=== PATIENT | male | born 1965 | race Caucasian/White ===

== ENCOUNTER 2020-04-09 12:10 | Emergency (ER) | payer BC, OTHER ==
[~2020-04-09] VITALS: Ht 177.8 cm; Wt 79.5 kg
[~2020-04-09 12:10] MED LIST: ALLO300T11 PO; AMOX-580 PO; CHLO25CA10 PO; COL0.6T PO; HYDR-4353 PO; HYDR50CA PO; INDO50CA96 PO; NAPR-1144 PO
[2020-04-09] MEDS ORDERED: normal saline 1000ML IV soln IVB ONE (12:35)
[2020-04-09] MEDS ORDERED: ondansetron/PF 4mg/2ml inj IV ONE (12:35)
[2020-04-09] MEDS ORDERED: thiamine 100mg/ml 2ml inj. IV ONE (12:35)
[2020-04-09] MEDS ORDERED: folic acid 1mg/0.2ml inj IV ONE (12:35)
[2020-04-09] MEDS ORDERED: LIDOcaine 1.5% w/epinephrine 1:200,000 5ml ampul IJ ONE (12:40)
[2020-04-09] MEDS ORDERED: TETanus/Pertussis (Acell)/Diphther VAC/PF (Tdap-Adult) 0.5ml syringe IMVAC ONE (12:40)
[2020-04-09] MEDS ORDERED: iohexol 350MG/ML 100ml bottle IV ONE (12:56)
--- NOTE | 2020-04-09 13:03 | NUR ---
Pt to CT with KAMRON Gee accompanying Patient.
[2020-04-09] MEDS ORDERED: LIDOcaine 1% w/epiNEPHrine 1:200,000 30ml vial IJ ONE (13:45)
[2020-04-09 14:19] LABS: BASOPHILS # (AUTO) 0.1 X10'3 (0-0.2); BASOPHILS % (AUTO) 1.3 % (0-1); EOSINOPHILS # (AUTO) 0.2 X10'3 (0-0.9); EOSINOPHILS % (AUTO) 3.3 % (0-6); HEMATOCRIT 44.4 % (42.0-52.0); HEMOGLOBIN 15.1 g/dl (14.0-17.9); LYMPHOCYTES # (AUTO) 1.4 X10'3 (1.1-4.8); LYMPHOCYTES % (AUTO) 29.6 % (21-51); MEAN CORPUSCULAR HEMOGLOBIN 31.5 PG (27.0-31.0); MEAN CORPUSCULAR HGB CONC 33.9 g/dL (33.0-36.5); MONOCYTES # (AUTO) 0.6 X10'3 (0-0.9); NEUTROPHILS # (AUTO) 2.6 X10'3 (1.8-7.7); NEUTROPHILS % (AUTO) 53.8 % (42-75); PLATELET COUNT 220 X10'3 (140-440); RED BLOOD COUNT 4.78 X10'6 (4.70-6.10); RED CELL DISTRIBUTION WIDTH 12.7 % (11.5-14.5); WHITE BLOOD COUNT 4.7 X10'3 (4.5-11.0)
[2020-04-09 14:32] LABS: ALANINE AMINOTRANSFERASE 41 U/L (12-78); ALBUMIN 3.7 G/DL (3.4-5.0); ALBUMIN/GLOBULIN RATIO 0.9 (1.1-1.5); ALKALINE PHOSPHATASE 73 IU/L (46-116); ANION GAP 8 (8-16); ASPARTATE AMINO TRANSFERASE 53 U/L (10-37); BILIRUBIN,TOTAL 0.3 MG/DL (0.1-1.0); BLOOD UREA NITROGEN 12 MG/DL (7-18); CALCIUM 8.3 MG/DL (8.5-10.1); CHLORIDE 108 MMOL/L (99-107); CREATININE 0.86 MG/DL (0.60-1.10); GLUCOSE 89 MG/DL (70-104); POTASSIUM 4.3 MMOL/L (3.5-5.1); SODIUM 144 MMOL/L (135-145); TOTAL CARBON DIOXIDE 27.8 MMOL/L (24-32); TOTAL PROTEIN 7.7 G/DL (6.4-8.2); eGFR > 90 ML/MIN
[2020-04-09 14:43] LABS: ETHANOL 0.364 GM/DL (0.0-0.010)
[2020-04-09 15:31] LABS: CLARITY,URINE CLEAR (Clear); COLOR,URINE YELLOW (Yellow); GLUCOSE, URINE NEGATIVE (Neg); KETONES,URINE NEGATIVE (Neg); LEUKOCYTE ESTERASE ,URINE NEGATIVE (Neg); NITRITES, URINE NEGATIVE (Neg); OCCULT BLOOD,URINE TRACE-INTACT (Neg); PH,URINE 6.5 (4.8-8.0); PROTEIN,URINE NEGATIVE (Neg); UROBILINOGEN,URINE 0.2 E.U/dL (0.2-1.0)
[2020-04-09 15:32] LABS: URINE AMPHETAMINE SCREEN NEGATIVE (Neg); URINE BARBITUATE SCREEN NEGATIVE (Neg); URINE BENZODIAZEPINES SCREEN NEGATIVE (Neg); URINE CANNABINOID SCREEN NEGATIVE (Neg); URINE COCAINE SCREEN NEGATIVE (Neg); URINE METHADONE SCREEN NEGATIVE (Neg); URINE OPIATE SCREEN NEGATIVE (Neg); URINE PHENCYCLIDINE SCREEN NEGATIVE (Neg)
[2020-04-09 15:38] LABS: UA COLLECTION TYPE CLN CATCH MIDSTREAM
--- NOTE | 2020-04-09 15:40 | NUR ---
FAXED PACKET [facility]
[2020-04-09 15:48] LABS: BACTERIA,URINE NONE SEEN /HPF (Neg); RBC,URINE 0-2 /HPF (0-2); SQUAMOUS EPITHELIAL CELL,UR NONE SEEN /LPF (FEW); WBC,URINE 0-4 /HPF (0-4)
--- NOTE | 2020-04-09 15:51 | NUR ---
REPORT RECEIVED, CARE ASSUMED. PT BROUGHT OVER FROM ER14 OF23. PT HAS BANDAGES ON BOTH SIDES OF HIS NECK FROM SELF HARM; CUTTING HIMSELF. PT HAS A PIV RUNNING 2ND LITER OF NS. PT IS COOPERATIVE. URIN SENT TO LAB, PT GIVEN LUNCH TRAY AND IS CURRENTLY SLEEPING IN NO NOTED DISCRESS
--- NOTE | 2020-04-09 17:04 | NUR ---
PT IS AWAKE, DISCUSSED THAT BROUGHT HIM IN TO THE ER WITH HIS NECK INJURIES. PT STATES "JUST LIFE, IT'S TOO HARD". PT IS VERY EVASIVE, STATING THAT HE HAS NOT BEEN HAPPY WITH HIS JOB AND HIS NEW BOSS, WOMEN, AND JUST LIFE IN GENERAL. PT STATES THAT HE WISHED HE HAD AND THE ONLY THING THAT SAVED HIM WAS A "CALL FROM MY BOSS AT JUST THE RIGHT TIME." PT ADMITTS TO NEEDING HELP AND IS WILLING TO ACCEPT IT AT THIS TIME. PT IS REQUESTIONS MEDICATION FOR NECK PAIN AND REQUESTED HIS CAN OF CHEW. PT WAS TOLD THAT THIS WAS A NON-TOBACCO HOSPITAL AND THAT THE PROVIDER WOULD BE ASKED FOR PAIN MEDICATION AND A NICOTINE PATCH FOR HIM
[2020-04-09] MEDS ORDERED: nicotine 21mg patch - 24 hr TD ONE (17:35)
[2020-04-09] MEDS ORDERED: acetaminophen 325mg tablet PO ONE (17:35)
--- NOTE | 2020-04-09 17:50 | NUR ---
PT ON THE PHONE WITH HIS DAUGHTER JLUIS. PT GIVEN TYLENOL AND APPLIED A 21 NICOTINE PATCH TO HIS RT SHOULDER
--- NOTE | 2020-04-09 17:57 | NUR ---
PT HAS GIVEN STAFF PERMISSION TO SHARE ANY INFORMATION WITH HIS DAUGHTER JLUIS, REGARDING HIS CARE AND STATUS DURING HIS HOSPITAL STAY
--- NOTE | 2020-04-09 18:19 | NUR ---
PT'S DAUGHTER, JLUIS PRIEST, CALLED WITH CONCERNS REGARDING HER FATHER. SHE WAS NOTIFIED THAT HER FATHER HAD GIVEN THE STAFF PERMISSION TO SPEAK WITH HER REGARDING HIS CARE AND STATUS WHILE IN THE HOSPITAL. MS PRIEST ASKED HOW LONG HE WOULD HE BE HELD AND THE DIFFERENCE BETWEEN AND 179 vs 515 WAS EXPLAINED. MS PRIEST EXPRESSED CONCERN THAT HER FATHER WOULD "BULLSHIT" HIS WAY THROUGH THE PROCESS AND STATES THAT HE MADE STATMENTS TO HER REGARDING "FINISHING WHAT I STARTED WHEN I GETS OUT". CLEMENTINE FROM [facility] NOTIFIED OF THE CONVERSATION WITH MS. ZAYDA PRIEST'S CONTACT PHONE # [phone]
--- NOTE | 2020-04-09 19:27 | NUR ---
ASSUMING CARE OF PT FROM DAY SHIFT RN, HUBERT. PTS DAUGHTER, MCKENZIE, CALLING AND TALKING WITH PT NOW. PT JUST FINISHED EATING DINNER, ATE APROX 50% OF HIS MEAL. PT STATES A HEADACHE AND IS WILLING TO TAKE A TYLENOL IF AVAILABLE. I WILL REQUEST FROM PROVIDER. OTHERWISE PT WITH NO COMPLAINTS.
--- NOTE | 2020-04-09 19:29 | NUR ---
PT RECEIVED A TYLENOL TAB 650 MG 1.5 HR AGO. UPDATED THAT NO OTHER PRN PAIN MEDS AVAIL AT THIS TIME. PT REPORTS HE IS OK AT THIS TIME.
[2020-04-09] MEDS ORDERED: Melatonin 3mg tablet PO SCH (21:00)
--- NOTE | 2020-04-09 21:31 | NUR ---
PT REMAINS AWAKE, GIVEN REFILL OF PITCHER OF ICE WATER. PT REQUESTS SOMETHIGN TO HELP HIM SLEEP. STATES HE HAS NOT TAKEN ANYTHING IN THE PAST FOR THIS.
--- NOTE | 2020-04-09 21:48 | NUR ---
VERBAL RECEIVED FROM DR RAMOS FOR MELATONIN 3 MG TAB X1 NOW.
[2020-04-09] MEDS ORDERED: NO HOME MEDS (22:22)
--- NOTE | 2020-04-09 22:39 | NUR ---
PT ASKED EARLIER ABOUT HIS FEELING ABOUT WANTING TO END HIS LIFE AND HIS CURRENT STRESSORS. HE STATES TODAY HE CALLED HIS FORMS DESIGNER TO INQUIRE ABOUT GETTING HELP TO GO TO REHAB FOR HIS ETOH. WHEN HE SPOKE WITH IS UNION REP LATER, HE TOLD HIM HE HAD JUST CUT HIS THROAT. THE INDIVIDUAL HUNG UP AND "HE MUST HAVE CALLED 911" SOON AFTER PT REPORTS AN AMBULANCE WAS AT HIS HOME. PT STATES HE CALLED HIS EXWIFE ONCE ADMITTED HERE AND THEN HIS DAUGHTER, JLUIS, CALLED HIM. STATES HE IS FEELING LESS DEPRESSED BECAUSE HE SPOKE WITH HIS DAUGHTER AND THEY HAVE NOT SPOKEN IN OVER A YEAR. SHE CALLED A WHILE AGO FOR A 2ND TIME.
--- NOTE | 2020-04-10 00:40 | NUR ---
pt remains unable to sleep. was given melatonin 3 mg 2 hr ago. nicotine patch also just came off and pt request new one.
--- NOTE | 2020-04-10 00:43 | NUR ---
verbal received from dr. grajeda for reorder of nicotine patch now and benedryl 50 mg po x 1 now for sleep.
[2020-04-10] MEDS ORDERED: diphenhydrAMINE 25mg capsule PO ONE (00:45)
[2020-04-10] MEDS ORDERED: nicotine 21mg patch - 24 hr TD ONE (00:45)
--- NOTE | 2020-04-10 00:56 | NUR ---
pt given benedryl and new nicotine patch.
[2020-04-10 06:09] VITALS: BP 150/92
--- NOTE | 2020-04-10 06:32 | NUR ---
PT IS SLEEPING. NO CONCERNS AT THIS TIME
--- NOTE | 2020-04-10 07:51 | NUR ---
wound to neck was checked by md. dressing intact
--- NOTE | 2020-04-10 08:52 | NUR ---
pt states he is feeling better today. denies any neck pain.
--- NOTE | 2020-04-10 09:46 | NUR ---
pt is speaking with [facility]
--- NOTE | 2020-04-10 10:21 | NUR ---
breaking primary RN, pt was calm;y laying in bed, got up to bathroom and then called his daughter, no needs at this time
== END 2020-04-10 15:06 ==
LOC: ER 12:11
DX: S11.81XA Laceration without foreign body of other specified part of neck, initial encounter (principal); S01.81XA Laceration without foreign body of other part of head, initial encounter; F32.9 Major depressive disorder, single episode, unspecified; F10.129 Alcohol abuse with intoxication, unspecified; I10 Essential (primary) hypertension; M10.9 Gout, unspecified; Z90.49 Acquired absence of other specified parts of digestive tract; Z98.890 Other specified postprocedural states; Z79.899 Other long term (current) drug therapy; X78.8XXA Intentional self-harm by other sharp object, initial encounter; Y92.89 Other specified places as the place of occurrence of the external cause; Y99.8 Other external cause status; Y90.0 Blood alcohol level of less than 20 mg/100 ml
CPT/HCPCS: 12013; 36415; 70496; 70498; 80053; 80305; 80320; 81001; 84443; 85025; 90471; 90715; 96361; 96374; 96375; 99291; J2405; J3411; J3490; J7030; Q0163; Q9967; 99285

== ENCOUNTER 2020-04-10 12:44 | Inpatient (IN) | payer BC, OTHER ==
[~2020-04-10] VITALS: Ht 177.8 cm; Wt 75.5 kg
[~2020-04-10 12:44] MED LIST changes: -ALLO300T11 PO; -AMOX-580 PO; -CHLO25CA10 PO; -COL0.6T PO; -HYDR-4353 PO; -HYDR50CA PO; -INDO50CA96 PO; -NAPR-1144 PO; +NO HOME MEDS
[2020-04-10] MEDS ORDERED: acetaminophen 325mg tablet PO PRN (14:55)
[2020-04-10] MEDS ORDERED: magnesium hydroxide 30ml (MOM) UD suspension PO PRN (14:55)
[2020-04-10] MEDS ORDERED: loperamide 2mg capsule PO PRN (14:55)
[2020-04-10] MEDS ORDERED: mag hydrox/Alum hydrox/simeth 30ml oral suspension PO PRN (14:55)
[2020-04-10 15:30] VITALS: BP 160/96
[2020-04-10] MEDS: LORazepam 1 MG tablet PO PRN ×2 (15:37→21:57)
[2020-04-10] MEDS: acetaminophen 325mg tablet PO PRN (15:37)
[2020-04-10] MEDS: NICOTINE POLACRILEX 2 MG LOZENGE BC PRN ×2 (15:51→18:52)
--- NOTE | 2020-04-10 17:58 | NUR ---
Admission Note: Pt. admitted to the unit at approximately 1455 from ER Overflow. Safety check completed and belongings inventoried by Bibi Duke. Pt. was originally brought in the the ER by EMS from his residence at [address] Pt. reported increased depression X one month r/t a recent break up and chronic alcohol use. Pt. reports that he drinks a 6 pack of beer/day for the last 10 years. Pt. had used alcohol and then taken a razor blade and used it to cause self-inflicted neck wounds bilaterally and to the right side of his forehead. Pt's sales representative supervisor from work called 911. Pt. was cooperative with the admission process and currently denies any S/I. He scored as a high risk on the [place] Suicide Risk Assessment, however is able to contract for safety, Q 15min safety checks ordered by BRYANNA Alvarenga. Pt. does report anxiety and has experienced alcohol withdrawal in the past, endorsed to BRYANNA Alvarenga who ordered CIWA Q 6 hours. PRN Ativan and Tylenol administered for H/A with effectiveness. Pt. denies any home medications. Pictures obtained of pt's lacerations and chronic generalized psoriasis rash present on his body and placed in chart.
[2020-04-10 20:00] VITALS: BP 141/89
[2020-04-10] MEDS: traZODone 50mg tablet PO PRN (21:57)
[2020-04-10] MEDS: Melatonin 3mg tablet PO SCH (21:57)
--- NOTE | 2020-04-11 04:04 | NUR ---
Nursing Progress Note: Miguel Chaparro Legal hold:5150 Client on voluntary/involuntary status for GD. Report received from TAMELA Giordano with use of SBAR. Why are they here: Admission Note: Pt. admitted to the unit at approximately 1455 from ER Overflow. Safety check completed and belongings inventoried by Bibi Duke. Pt. was originally brought in the the ER by EMS from his residence at [place] [address] in [place]. Pt. reported increased depression X one month r/t a recent break up and chronic alcohol use. Pt. reports that he drinks a 6 pack of beer/day for the last 10 years. Pt. had used alcohol and then taken a razor blade and used it to cause self-inflicted neck wounds bilaterally and to the right side of his forehead. Pt's primary care sales representative from work called 911. Assessment What has happened this shift: Patient interviewed 1:1 in his room at bedside. Patient is awake and well oriented. Patient denies S/I or H/I at this point. Patient does admit to feeling depressed, he complains of anxiety. Patient denies hallucinations. Patient is cooperative with this account underwriter. Patient tells of an ETOH history. A CWIA protocol is in place. Documentation is Q6 hours per BRYANNA Lassiter. Patient has scheduled Ativan, he was given Trazadone 50 mg PO as a PRN for sleep. Patient is scoring in a normal range on the CWIA scoring system. Patient retired to sleep and is resting quietly. S/I, H/I: Denies both. A/VH: Denies. Sleep: Will tally sleep time at 0500 hours. ADL's:WNL. Group attendance: No group on security shift manager. Were meds taken: Patient is medication compliant. Any med S/E: None noted or observed. Mental Status Exam Appearance: Clean appearance, wearing green scrubs. Eye contact: Good. Behavior: Friendly, cooperative. Isolates in room. Speech: Normal rate,rhythm, and tone. Mood: Mild depression and anxiety. Affect: Flat. Thought process: Linear. Thought Content: Trying to relax, meeting ones needs. Cognition: Alert, oriented X4. Insight: Fair. Judgment: Poor. Interventions PRN's used: Trazadone Therapeutic interventions: Introduced self and established rapport, maintained a safe and supportive environment, ensured contract for safety, provided clear and simple instructions, monitored behaviors and need for intervention, and maintained Q 15min safety checks. Restraints/seclusion/emergency medication: None
[2020-04-11 08:00] VITALS: BP 147/96
[2020-04-11] MEDS ORDERED: nicotine 21mg patch - 24 hr TD SCH (08:00)
[2020-04-11] MEDS: NICOTINE POLACRILEX 2 MG LOZENGE BC PRN ×5 (08:58→22:15)
[2020-04-11] MEDS: LORazepam 1 MG tablet PO PRN ×3 (08:58→20:48)
[2020-04-11] MEDS: nicotine 21mg patch - 24 hr TD SCH (08:58)
[2020-04-11] MEDS: acetaminophen 325mg tablet PO PRN ×3 (09:02→20:48)
[2020-04-11 09:04] LABS: HEMOGLOBIN A1C 5.1 % (4.5-6.2)
[2020-04-11 09:06] LABS: CHOL/HDL RATIO 1.6 (0.00-4.99); CHOLESTEROL 165 MG/DL (0-200); HDL CHOLESTEROL 106 MG/DL (35-60); LDL CHOLESTEROL 51 MG/DL (50-100); TRIGLYCERIDES 37 MG/DL (20-135)
--- NOTE | 2020-04-11 10:04 | NUR ---
Assessment Presenting Issues: Pt admitted to [facility] after being 5150 due to concerns associated with DTS as pt was bib EMS after cutting his neck. The wound needed stitching. Interventions: SS met w/pt at bedside, he was sitting in the dark, when SS turned the light on, pt had slightly swollen red eyes and appears as if he had been crying. SS utilized IL strategies to engage pt in completing bio-psychosocial assessment, PHQ-9 and the AUDIT. PHQ-9 score indicates mild-moderate depression sxs and AUDIT indicates severe Alcohol use. SS discussed what these scores means w/pt and provided education re treatment options. Pt agreed to discuss treatment options with attending PA. SS consulted w/attending PA, per consultation, PA will discuss adding Lexapro to meds regiment w/pt. Plan: SS will engage dtr in collateral and dcp when appropriate. Rachele Medeiros LCSW Addendum: 04/13/20 at 1035 by Rachele Medeiros Amended: Links added.
--- NOTE | 2020-04-11 15:49 | NUR ---
Nursing Progress Note: Legal hold: 5150 Client on involuntary status for DTS Report received from nurse with use of SBAR: TAMELA Moreno Why are they here: Pt. admitted to the unit at approximately 1455 from ER Overflow. Safety check completed and belongings inventoried by Bibi Duke. Pt. was originally brought in the the ER by EMS from his residence [place] [address] in [place]. Pt. reported increased depression X one month r/t a recent break up and chronic alcohol use. Pt. reports that he drinks a 6 pack of beer/day for the last 10 years. Pt. had used alcohol and then taken a razor blade and used it to cause self-inflicted neck wounds bilaterally and to the right side of his forehead. Pt's guest service representative from work called 911. Assessment What has happened this shift: Received pt. sleeping in bed at the beginning of the shift, he awoke and attended breakfast in the Group Room. Pt. presents as cooperative, fatigued, and anxious. 1:1 completed at bedside, pt. continues to deny S/I or depression, however appears to be minimizing s/s. Pt. states animatedly, "Everything is good!" Pt. does admit to ongoing anxiety r/t his desire to get back to work, this typewriter tester educated pt. regarding the importance of working on himself and he reported understanding and agreed. Pt. continues on CIWA protocol Q 6 hours as ordered, and score remains WNL indicating minimal alcohol withdrawal. PRN Ativan and Tylenol administered with effectiveness. Sutures to pt's neck assessed and remain well approximated and CDI, no s/s of increased redness or infection noted, will continue to monitor. Pt. up throughout the afternoon watching TV in the Recreation Room and interacting appropriately with others. S/I, H/I: Denies A/VH: Denies, does not appear internally preoccupied Sleep: Pt. reports he slept very well, sleep hours are 8.5 ADL's: Independent Group attendance: No Were meds taken: Yes Any med S/E: None Mental Status Exam Appearance: Neat and appropriately dressed Eye contact: Good Behavior: Cooperative, fatigued, and anxious Speech: WNL Mood: Pleasant Affect: Blunted Thought process: Linear Thought Content: Some preoccupation with anxiety Cognition: A& X4 Insight: Poor Judgment: Poor Interventions PRN's used: Ativan X2, Tylenol X2, and Nicotine Lozenges Therapeutic interventions: Maintained a safe and therapeutic environment, ensured contract for safety, provided clear and simple instructions, monitored behavior and need for intervention, completed CIWA protocol per orders, and maintained Q 15min safety checks. Restraints/seclusion/emergency medication: N/A Justification of Continued Inpatient Treatment: Pt. requires interruption of current crisis, medication adustments, and a safe and supportive environment.
--- NOTE | 2020-04-11 17:35 | NUR ---
Assessment Presenting Issues: Pt was 5150 in ER and admitted to [facility] due to concerns associated w/DTS after pt was bib EMS as pt had cut his neck w/razor, the wound required some suturing, pt janeen as .386. Interventions: SS met w/pt at bedside engaged pt in completing a bio-psychosocial assessment, AUDIT & PHQ-9. Pt was A/O x4, TP-linear, TC-focused on leaving, Mood-depressed, Affect-blunted, Memory- ST-intact/LT-intact. Alchol Use Disorder Inventory Tool: Pt scored a 24/40 an indication that his current use is considered to be severe and recommends a referral to a specialized program/treatment. Pt is open to receiving a referral. PHQ-9: Pt scored 7/27, a score which falls in the mild range. Pt also appears to minimize severity of sxs and downplay his self harm behavior. A review of MDT medications record revealed that pt's PMD had prescribed Trazadone & Buspar this past summer, pt's own dtr had contacted ER when pt was brought in and expressed concerns that pt "will say and do whatever to get out, just as he always does". Pt theodore LETA & TP-#9 Plan: SS will contact dtr to gather collateral info and consult w/attending PA re diagnostic criteria for treatment. Rachele Medeiros LCSW Addendum: 04/11/20 at 1759 by Rachele Medeiros SS Amended: Links added.
[2020-04-11 19:00] VITALS: BP 160/105
[2020-04-11] MEDS: traZODone 50mg tablet PO PRN (20:48)
[2020-04-11] MEDS: Melatonin 3mg tablet PO SCH (20:50)
--- NOTE | 2020-04-11 23:32 | NUR ---
Nursing Progress Note: Miguel Chaparro Legal hold:5150 Client on voluntary/involuntary status for GD. Report received from TAMELA Giordano with use of SBAR. Why are they here: Admission Note: Pt. admitted to the unit at approximately 1455 from ER Overflow. Safety check completed and belongings inventoried by Bibi Duke. Pt. was originally brought in the the ER by EMS from his residence [place] [address] in [place]. Pt. reported increased depression X one month r/t a recent break up and chronic alcohol use. Pt. reports that he drinks a 6 pack of beer/day for the last 10 years. Pt. had used alcohol and then taken a razor blade and used it to cause self-inflicted neck wounds bilaterally and to the right side of his forehead. Pt's sales representative trainee from work called 911. Assessment What has happened this shift: Patient interviewed 1:1 in the recreation room. Patient is awake and well oriented. Patient denies S/I or H/I at this point. Patient admits to minor anxiety and depression. Patient denies hallucinations. He watches a football game with another patient. A CWIA protocol remains in place. Documentation is Q6 hours per BRYANNA Lassiter. Patient has scheduled Ativan, he was given Trazadone 50 mg PO as a PRN for sleep, Nicotine lozenge for his tobacco cravings, and his Ativan. Patient denies S/I or H/I at this time. Patient has a mild headache that was treated with Tylenol. Patient minimizes any medical conditional at this time. He is cooperative with staff. S/I, H/I: Denies both. A/VH: Denies. Sleep: Will tally sleep time at 0500 hours. ADL's:WNL. Group attendance: No group on utility aide. Were meds taken: Patient is medication compliant. Any med S/E: None noted or observed. Mental Status Exam Appearance: Clean appearance, wearing green scrubs. Eye contact: Good. Behavior: Friendly, cooperative, some light socialization. Speech: Normal rate,rhythm, and tone. Mood: Mild depression and anxiety. Affect: Flat. Thought process: Linear. Thought Content: Trying to relax, meeting ones needs. Cognition: Alert, oriented X4. Insight: Fair. Judgment: Poor. Interventions PRN's used: Trazadone Therapeutic interventions: Introduced self and established rapport, maintained a safe and supportive environment, ensured contract for safety, provided clear and simple instructions, monitored behaviors and need for intervention, and maintained Q 15min safety checks. Restraints/seclusion/emergency medication: None Addendum: 04/12/20 at 0204 by Rj Sherwood RN Initial report at shift change was provided by TAMELA Bob, not Pasquale as stated.
[2020-04-11] MEDS ORDERED: LORazepam 1 MG tablet PO PRN (23:50)
[2020-04-11] MEDS ORDERED: thiamine inj. 100 MG in normal saline 100ml IV soln 100 ML IV ONE (23:50)
[2020-04-11] MEDS ORDERED: LORazepam 2 mg/ml vial IV PRN (23:50)
[2020-04-11] MEDS ORDERED: haloperidol lactate 5mg/ml inj IM PRN (23:50)
[2020-04-11] MEDS ORDERED: haloperidol 5mg tablet PO PRN (23:50)
--- NOTE | 2020-04-12 02:04 | NUR ---
An order for IV NaCl was noted on JUL late night. Thiamine IV was also included. The patient refused IV. The CIWA response scores are being done Q6 hours per BRYANNA Jacobo. This patient has been showing no elevation of scores, no diaphoresis, no tremors, no changes in mental status. Patient has been getting Ativan 1mg [id number] as needed for anxiety. Patient tolerates well. Patient watches television sports, he naps on occasion. Patient then retired to bed to sleep for the night. This poem writer contacted Hospitalist . She was advised patient refused IV, she was also advised that patient has been doing with good vital signs and cognition. She advises not to worry about IV Nacl or IV Thiamine, etc.
[2020-04-12] MEDS: LORazepam 1 MG tablet PO PRN ×3 (02:50→15:46)
--- NOTE | 2020-04-12 02:51 | NUR ---
Patient awoke, he complains of feeling a little shaky with mild anxiety. PO Ativan 1 mg administered. Patient returned to sleep.
[2020-04-12 07:57] VITALS: BP 134/96
[2020-04-12] MEDS: folic acid 1mg tablet PO SCH (08:59)
[2020-04-12] MEDS: thiamine 100mg tablet PO SCH (09:00)
[2020-04-12] MEDS: nicotine 21mg patch - 24 hr TD SCH (09:00)
[2020-04-12] MEDS: multivitamins, therapeutics tablet PO SCH (09:00)
[2020-04-12] MEDS: NICOTINE POLACRILEX 2 MG LOZENGE BC PRN ×5 (09:38→20:52)
--- NOTE | 2020-04-12 10:45 | NUR ---
DCP Presenting Issues: Attending PA requesting SS support with dcp activities as pt is ready for d/c. Interventions: SS met w/pt and engaged him in dcp activities, pt was found in rec room with lights off, when SS brought him into the conference room and turned the light on, pt's eyes were red and it appears that he had been crying. Pt did not have any plans for continued care or rehab following d/c only that he would be staying w/his dtr and that his union rep would get him into a program. SS asked pt to contact his union rep and get info on the specific program while SS contact his dtr to engage her in dcp activities. Pt became irritated with SS, SS informed him that the other option was for pt to stay voluntarily until Wednesday so SS can help him w/his dcp. Pt opted to contact his union rep. SS had t/c with pt's dtr/Fannie, per t/c Rina does not want pt to stay with her but she will pick him up and take him where he wants to go. Fannie also informed SS that the woman that pt had been renting from is not returning her p/c so Fannie feels that pt may have been kicked out of that home. SS asked if Fannie would allow pt to stay w/her short term if he had a rehab program to check into, Fannie agreed to this. SS met w/pt to f/u on his phone call with his union rep, pt reports that he can go to [facility] on Wednesday, SS asked him to call his dtr and let her know this. Per session, pt will go stay w/dtr over the weekend and [facility] will take him to [facility] for a 30-day program on Wednesday. SS consulted w/attend PA, per consultation dcp is accepted and pt will d/c tomorrow morning. Plan: Pt to d/c tomorrow morning Rachele Medeiros LCSW Addendum: 04/13/20 at 1059 by Rachele HURT Amended: Links added.
--- NOTE | 2020-04-12 16:52 | NUR ---
Nursing Progress Note: Legal hold: 5150 Client on involuntary status for DTS Report received from nurse with use of SBAR: Mavis Victoria RN Why are they here: Pt. admitted to the unit at approximately 1455 from ER Overflow. Safety check completed and belongings inventoried by Bibi Duke. Pt. was originally brought in the the ER by EMS from his residence [place] [address] in [place]. Pt. reported increased depression X one month r/t a recent break up and chronic alcohol use. Pt. reports that he drinks a 6 pack of beer/day for the last 10 years. Pt. had used alcohol and then taken a razor blade and used it to cause self-inflicted neck wounds bilaterally and to the right side of his forehead. Pt's equal opportunity representative from work called 911. Assessment What has happened this shift: Pt was sleeping at change of shift and resumed sleeping after attending breakfast. Pt was initially guarded during assessment but eventually opened up with why he was here. Story is consistent with report given at admit and to the provider (per notes this RN read). Pt continues to minimize event when relaying the story, and states he plans to leave tomorrow because he knows he needs rehab but he will arrange that with his union insurance. He would like to go to a rehab facility out of [facility] because I just dont want to see anyone I may know while Im in there. When asked whether or not he thinks cutting his neck is a serious attempt at suicide, pt responds Yes, I know it is. I know it is serious. Pt states he has never been suicidal before this incident. When asked what he thinks lead up to or triggered this attempt, pt states I broke up with my girlfriend and that was a trigger but not the main cause. Pt elaborated on multiple stressors: work environment changes due to the pandemic, customer attitudes since the pandemic (many rude), and not enjoying his roommate (did not elaborate further on this situation). Pt states he has good support and recognizes the need for help regarding his alcoholism. Pt endorses depression 2/10 and anxiety 6/10. During interactions, pt states he is leaving tomorrow at 11am. Rn asks where he heard this as usually serious attempts are monitored longer. Pt states "No, the MD said I could leave." Pt inquiring as to when he can have sutures removed; ER record states 5-7 days after placement. Placement was on 04/09. Pt advised to have them removed within that time frame and that if he is still here, then they will be removed prior to discharge. S/I, H/I: Denies A/VH: Denies Sleep: 7.75 hrs ADL's: Independent Group attendance: Did not attend Were meds taken: Yes Any med S/E: None reported nor observed Mental Status Exam Appearance: Neat and appropriately dressed in personal attire, unshaven with orta growing in Eye contact: Fair Behavior: watching TV, talking on the phone, sleeping and resting, and attends meals Speech: Normal rate and rhythm Mood: Tired Affect: Constricted Thought process: Linear Thought Content: discharging tomorrow, going to rehab Cognition: A&Ox4 Insight: Poor to fair Judgment: Poor to fair Interventions PRN's used: Ativan x2, Nicotine Lozenge x2 Therapeutic interventions: Maintained a safe and therapeutic environment, ensured contract for safety, provided clear and simple instructions, monitored behavior and need for intervention, completed CIWA protocol per orders, and maintained Q 15min safety checks. Restraints/seclusion/emergency medication: N/A Justification of Continued Inpatient Treatment: Pt. requires interruption of current crisis, medication adjustments, and a safe and supportive environment.
--- NOTE | 2020-04-12 18:16 | NUR ---
DCP SS engaged pt's dtr in dcp activities. Per t/c, pt will go to her home for a couple of days and to [facility] in [place] for a 30-day Alcohol Rehab program. SS consulted w/attending PA, per consultation pt will be d/c tomorrow as planned. Rachele Medeiros LCSW Addendum: 04/12/20 at 1820 by Rachele HURT Amended: Links added.
[2020-04-12] MEDS ORDERED: LORazepam 1 MG tablet PO ONE (18:50)
[2020-04-12 19:00] VITALS: BP 165/100
[2020-04-12] MEDS: acetaminophen 325mg tablet PO PRN (19:02)
[2020-04-12] MEDS: traZODone 50mg tablet PO PRN (20:52)
[2020-04-12] MEDS: Melatonin 3mg tablet PO SCH (20:52)
--- NOTE | 2020-04-13 04:28 | NUR ---
RN PROGRESS NOTE: LEGAL HOLD: 5150 for DTS REPORT FROM: Nurse with use of SBAR: Mavis Victoria RN REASON FOR ADMIT: BIB ER by EMS from [facility] in [place]. Pt. reported increased depression FOR month r/t a recent break up with his girlfriend, and chronic alcohol use. Pt. reports that he drinks a 6 pack of beer/day for the last 10 years. Client stated, "I got really drunk and took a razor blade and cut my neck." ASSESSMENT: Client was watching TV at [employer]. Compliant with meds. Client stated, "I've never done anything like this before. I like myself and I wouldn't hurt myself. I don't know why I did it." "There was blood running down my shirt and pants." Client reported a significant history of ETOH and tobacco use. Denies SI and HI. Looking forward to discharge in the am. Client "want's to go to rehab". "I can't keep living like this." Client has a steady job and owns a vehicle. He recently broke-up with his girlfriend. His mood is stable at this time. Client was given Ativan for mild agitation at the beginning of shift. His BP was elevated. He was concerned about some of the details of discharge. Client went to sleep and slept well. S/I, H/I: Denies A/VH: Denies ADL's: Independent Group attendance: N/A Were meds taken: Yes Any med S/E: None reported nor observed Appearance: Appropriately dressed, unshaven. Eye contact: Fair Behavior: watching TV, talking on the phone, sleeping and resting, and attends meals Speech: Normal rate and rhythm Mood: Stable Affect: Full Thought process: Linear Insight: Poor to fair Judgment: Poor to fair INTERVENTIONS: Restraints/seclusion/emergency medication: N/A PRN's used: Ativan, Nicotine Lozenge, Trazodone. Therapeutic interventions: Safe, therapeutic environment, contract for safety, monitored behavior, CIWA protocol per orders, Q 15min safety checks. Justification of Continued Inpatient Treatment: Ready for discharge.
[2020-04-13 08:00] VITALS: BP 139/89
[2020-04-13] MEDS ORDERED: naltrexone 50mg tablet PO SCH (08:00)
[2020-04-13] MEDS ORDERED: ESCITALOPRAM OXALATE 5 MG TABLET PO SCH (08:00)
[2020-04-13] MEDS: folic acid 1mg tablet PO SCH (08:07)
[2020-04-13] MEDS: multivitamins, therapeutics tablet PO SCH (08:07)
[2020-04-13] MEDS: thiamine 100mg tablet PO SCH (08:07)
[2020-04-13] MEDS: nicotine 21mg patch - 24 hr TD SCH (08:09)
[2020-04-13] MEDS: NICOTINE POLACRILEX 2 MG LOZENGE BC PRN (08:09)
[2020-04-13] MEDS ORDERED: TRAZ-251 PO (08:57)
[2020-04-13] MEDS ORDERED: ESCI5TAB PO (08:57)
[2020-04-13] MEDS ORDERED: NALT50TA PO (08:57)
--- NOTE | 2020-04-13 10:10 | NUR ---
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 Patient is calm and cooperative. Patient states he is going to go live with his daughter and go to a rehab facility next week. Patient has prescriptions in his packet. RN gave patient discharge instructions. Patient verbalized understanding. All questions were answered. Patient ambulatory with all his belongings, steady gait to lobby with [employer] with all his belongings.
== END 2020-04-13 10:50 | disposition home or self-care (01) | DRG 882 ==
LOC: ADULT MH 14:52
PROVIDERS: ADMIT Psychiatry & Neurology Psychiatry; ATTEND Psychiatry & Neurology Psychiatry
DX: F43.25 Adjustment disorder with mixed disturbance of emotions and conduct (principal); T51.0X1A Toxic effect of ethanol, accidental (unintentional), initial encounter; F02.80 Dementia in other diseases classified elsewhere, unspecified severity, without behavioral disturbance, psychotic disturbance, mood disturbance, and anxiety; F32.9 Major depressive disorder, single episode, unspecified; F10.20 Alcohol dependence, uncomplicated; G30.9 Alzheimer's disease, unspecified; G89.29 Other chronic pain; Z87.891 Personal history of nicotine dependence; X78.8XXA Intentional self-harm by other sharp object, initial encounter; Y93.89 Activity, other specified; Y92.89 Other specified places as the place of occurrence of the external cause; Y99.8 Other external cause status
CPT/HCPCS: 36415; 80061; 83036; 87081

== ENCOUNTER 2023-06-19 08:16 | Emergency (ER) | payer MEDICAID, OTHER ==
[~2023-06-19] VITALS: Ht 177.8 cm; Wt 84.1 kg
[~2023-06-19 08:16] MED LIST changes: +ESCI5TAB PO; +NALT50TA PO; +TRAZ-251 PO
[2023-06-19 08:24] VITALS: TEMP 97.8
[2023-06-19] MEDS: normal saline 1000ML IV soln IVB ONE (09:26)
[2023-06-19 09:47] LABS: BASOPHILS # (AUTO) 0.2 X10'3 (0-0.2); BASOPHILS % (AUTO) 1.2 % (0-1); EOSINOPHILS # (AUTO) 0.1 X10'3 (0-0.9); EOSINOPHILS % (AUTO) 0.7 % (0-6); HEMATOCRIT 35.9 % (42.0-52.0); LYMPHOCYTES # (AUTO) 1.6 X10'3 (1.1-4.8); LYMPHOCYTES % (AUTO) 11.2 % (21-51); MEAN CORPUSCULAR HEMOGLOBIN 28.3 PG (27.0-31.0); MEAN CORPUSCULAR HGB CONC 33.5 g/dL (33.0-36.5); MEAN CORPUSCULAR VOLUME 84.3 FL (78-98); MONOCYTES # (AUTO) 1.2 X10'3 (0-0.9); MONOCYTES % (AUTO) 8.2 % (2-12); NEUTROPHILS # (AUTO) 11.3 X10'3 (1.8-7.7); NEUTROPHILS % (AUTO) 78.7 % (42-75); PLATELET COUNT 404 X10'3 (140-440); RED BLOOD COUNT 4.26 X10'6 (4.70-6.10); RED CELL DISTRIBUTION WIDTH 14.6 % (11.5-14.5); WHITE BLOOD COUNT 14.3 X10'3 (4.5-11.0)
[2023-06-19 09:58] LABS: D-DIMER 0.75 MG/L FEU (0-0.50)
[2023-06-19 10:09] LABS: ALBUMIN 3.1 G/DL (3.4-5.0); ANION GAP 9 (8-16); BLOOD UREA NITROGEN 9 MG/DL (7-18); BUN/CREATININE RATIO 8.3 (10.0-20.0); CALCIUM 8.1 MG/DL (8.5-10.1); CHLORIDE 102 MMOL/L (99-107); CREATININE 1.09 MG/DL (0.60-1.10); GLUCOSE 124 MG/DL (70-104); POTASSIUM 3.9 MMOL/L (3.5-5.1); PRO BRAIN NATRIURETIC PEPTIDE 222 PG/ML (0-125); SODIUM 136 MMOL/L (135-145); TOTAL CARBON DIOXIDE 24.7 MMOL/L (24-32); eCRCL 77 ML/MIN; eGFR 70 ML/MIN
[2023-06-19 10:15] VITALS: BP 134/86; PULSE 85; RESP 18; O2SAT 99
[2023-06-19] MEDS: dexamethasone sod phosphate 10mg/ml inj IV STA (11:58)
== END 2023-06-19 12:03 | disposition home or self-care (01) ==
LOC: ER 08:17
DX: R55 Syncope and collapse (principal); M25.50 Pain in unspecified joint
CPT/HCPCS: 36415; 71045; 80048; 83880; 84145; 84484; 85025; 85379; 93005; 96361; 96374; 99285; J1100; J7030